=== PATIENT | female | born 1990 | race Asian ===

== ENCOUNTER 2018-09-21 23:21 | Observation (INO) | payer OTHER | END 2018-09-22 00:40 | disposition home or self-care (01) | LOC: FLD 23:21 | PROVIDERS: ADMIT Obstetrics & Gynecology; ATTEND Obstetrics & Gynecology | DX: Z34.90 Encounter for supervision of normal pregnancy, unspecified, unspecified trimester (principal) | CPT/HCPCS: 59025; G0378 ==

== ENCOUNTER 2018-09-26 11:44 | Observation (INO) | payer OTHER ==
--- NOTE | 2018-09-26 13:23 | SOAPPROG ---
SOAP Progress Note Assessment/Plan: Assessment: 28 at 39w0d with no evidence of ROM. Amnisure neg, nitrazine neg. Prior C/S - scheduled for repeat and bilateral salpingectomy on 09/28/18. CHARISMA 12.91 Plan: DC home. Keep plan for scheduled C/S in [address] Hoang - reviewed pre-op instructions again - 10 oz gatorade - to be finished 2 hour prior to surgery. No solid food for 8 hours prior to surgery. > 15 min spent with patient. Sangeeta Young MD, FACOG 09/26/18 13:20 Subjective: Pt had a gush of moisture around 1030, and then felt moist. Did not wear a pad hear and underwear was not wet. Good FM, no VB. Not feeling any contractions. Objective: 37.1 99 100% on RA 121/74 FHR 155 reactive toco - occasional contraction Gen - pleasant, NAD abd - soft, gravid, NT US done - cephalic presentation, CHARISMA 12.9cm, MVP 4.2cm, Active fetus. Nitrazine negative Amnisure negative. Per RN, perineum and vagina not moist. - Time Spent With Patient Time Spent With Patient: 15 min - Pending Discharge Pending Discharge Within 24 Hours: Yes Pending Discharge Within 48 Hours: Yes Pending Discharge Date: 09/27/18 Pending Discharge Time: 11:00 ICD10 Worksheet Patient Problems: Problems Problem Status Onset History of delivery, currently Acute History of delivery, currently Acute Vaginal discharge during in third trimester Acute - ICD10 Problem Qualifiers (1) Vaginal discharge during in third trimester (2) History of delivery, currently (3) History of delivery, currently
[2018-09-28] MEDS ORDERED: morphINE PF 5 MG/10 ML INJ ONE (07:31)
[2018-09-28] MEDS ORDERED: fentaNYL 100 MCG/2 ML INJ ONE (09:39)
== END 2018-09-26 13:30 | disposition home or self-care (01) ==
LOC: FLD 11:44
PROVIDERS: ADMIT Hospitalist; ATTEND Hospitalist
DX: Z03.71 Encounter for suspected problem with amniotic cavity and membrane ruled out (principal); O34.211 Maternal care for low transverse scar from previous cesarean delivery; Z3A.39 39 weeks gestation of pregnancy
CPT/HCPCS: 59025; 76815; 76818; G0378; J2274; J3010

== ENCOUNTER 2018-09-28 05:27 | Inpatient (IN) | payer OTHER ==
--- NOTE | 2018-09-22 16:05 | GHP ---
[f rep st] PREOP HISTORY AND PHYSICAL DATE OF ADMISSION: 09/28/2018 DATE OF OPERATION: Scheduled for September 28, 2018, at 7:30 a.m. PROCEDURE TO BE PERFORMED: Repeat lower transverse section and bilateral salpingectomy. MUNICIPAL MAINTENANCE WORKER: Dr. Kiki Madrid HISTORY OF PRESENT ILLNESS: The patient is a 28-year-old 2, para 1-0-0- 1, with a last menstrual period of 12/27/2017, and an EDC of 10/03/2018, confirmed by a 14 week ultrasound. She has had good care at [facility] since registration at 14 weeks gestation. Her risk factors, include history of , secondary to failure to progress and nonreassuring status with chorio. Patient has been counseled on risks, benefits of vaginal delivery versus repeat section, and she chooses to have a repeat section, declines trial of labor. She has a history of asthma, remote history has not bothered her in years, and she has a short interval, and is nonimmune to rubella. No other significant problems in this . She will be 39 weeks on the . PAST OBSTETRICAL HISTORY: In November of 2016, she had a viable male, 5 pounds 11 ounces at 38 weeks' gestation. She had rupture of membranes for meconium, had failure to progress and nonreassuring heart tones with maternal fever and chorioamnionitis. This was performed in [place]. She had a section that was uncomplicated and this is her second . PAST GYNECOLOGICAL HISTORY: Menarche at age 9, interval every 28 days, length of 5 days. During her section, she was discovered to have a right ovarian cyst that was benign, and it was removed at the time of surgery. No other gynecological problems. She had a normal Pap smear in April of 2018, which was negative as well as a high-risk HPV was also negative. PAST MEDICAL PROBLEMS: She has a history of asthma diagnosed at age 4. It is a minimally problematic for her. She was never intubated. PAST SURGICAL HISTORY: Of a with the incidental right ovarian cystectomy in 2016. She had wisdom teeth extraction, and that is all. ALLERGIES: She has no known drug allergies. CURRENT MEDICATIONS: Just include vitamins and DHA. SOCIAL HISTORY: She is . She lives with her , her son, and she is a ymex-eb-aayj mom. They are originally from [place]. She denies tobacco, alcohol, and drug use and she is sure that she does not want more children after this baby. FAMILY HISTORY: Her father has diabetes mom has depression and that is all. LABORATORY DATA: Her most recent hematocrit was 36. Labs in this : She is O positive. Antibody negative. RPR nonreactive. Rubella nonimmune. Hepatitis negative. HIV negative. Cystic fibrosis, SMA, fragile X negative. Standard panel was negative. Urine drug screen was negative. Pap was normal. Gonorrhea and chlamydia were normal. 1-hour GTT was 112. GBS was negative. OBJECTIVE: VITAL SIGNS: Today she is afebrile. Vital signs are stable. heart tones are 140s. Her blood pressure is 106/62. Weight is 161.2, which is a 31 pounds weight gain in this . Urine dip was negative. GENERAL: She is a well-developed, gravid, female in no acute distress. LUNGS: Clear to auscultation bilaterally. HEART: Regular rate and rhythm no murmur. ABDOMEN: Gravid. Fundal height is 38. heart tones 140s. PELVIC: Exam was deferred. Baby is cephalic. ASSESSMENT AND PLAN: 28-year-old 2, para 1-0-0-1 who will be 39 weeks gestation on 09/28/2018. Desires repeat lower transverse section and bilateral salpingectomy. The patient is aware that a salpingectomy is permanent and cannot be reversed. She does not want to bear children after this baby and desires to have a salpingectomy, declines other methods of contraception, and we reviewed all of those. She understands the risks and benefits of the section. The risks, including bleeding, infection, damage to organs, bowel, bladder, nerves, blood vessels, ureters, risk of injury, risk of hemorrhage requiring blood transfusion, hysterectomy, or . She understood these risks and benefits and agreed to proceed. /[id number]/MODL MTDD
[2018-09-28] MEDS ORDERED: ceFAZolin 2 GM/DEXTROSE 100 ML IV ONE (05:36)
[2018-09-28] MEDS ORDERED: LR 500 ML IV ONE (05:36)
[2018-09-28] MEDS ORDERED: CITRIC ACID/SODIUM CITRATE 30 ML UDCUP PO ONE (05:36)
[2018-09-28] MEDS: LR 1,000 ML IV SCH ×2 (06:40→11:20)
[2018-09-28 06:48] LABS: PLATELET COUNT 195 10^3/uL (150-400)
--- NOTE | 2018-09-28 07:19 | PREANESOB ---
Obstetric Pre-Anesthesia Info - General Info : 2 Para: 1 WARD: 10/03/18 Gestational Age: 39 week(s) and 2 day(s) - Info Status: Full Term, Perez FHR Pattern: Reassuring - Labor Status Section History: Repeat Indications for Current Section: Elective/Repeat Anesthesia Allergies/Adverse Reactions: Allergy/AdvReac Type Severity Reaction Status Date / Time house dust Allergy Verified 09/28/18 05:57 Visit Medications: Generic Name Dose Route Start Last Admin Trade Name Freq PRN Reason Stop Dose Admin Lactated Ringer's 1,000 mls @ 125 mls/hr 09/28/18 05:36 09/28/18 06:40 Lr IV 09/29/18 05:35 1,000 mls CONT CHITRA Administration Discontinued Medications Generic Name Dose Route Start Last Admin Trade Name Freq PRN Reason Stop Dose Admin Citric Acid/Sodium Citrate 30 ml 09/28/18 05:36 Bicitra PO 09/28/18 05:37 ONCALL ONE Cefazolin Sodium/Dextrose 100 mls @ 200 mls/hr 09/28/18 05:36 Ancef IV 09/28/18 06:05 ONCALL ONE Protocol Lactated Ringer's 500 mls @ 0 mls/hr 09/28/18 05:36 Lr IV 09/28/18 05:37 ONCE ONE As Directed - Vital Signs Latest Vital Signs (Nursing): Temp Pulse Resp BP Pulse Ox 36.8 C 82 16 121/85 H 95 09/28/18 05:58 09/28/18 05:58 09/28/18 05:58 09/28/18 05:58 09/28/18 05:58 Height/Weight (Nursing): Height 157.48 cm Weight 73.482 kg Labs: 09/28/18 03:20
--- NOTE | 2018-09-28 07:27 | PDANEPAE ---
ANE History of Present Illness here for repeat CS ANE Past Medical History - Cardiovascular History Hx Hypertension: No Hx Arrhythmias: No Hx Chest Pain: No Hx Coronary Artery / Peripheral Vascular Disease: No Hx CHF / Valvular Disease: No Hx Palpitations: No - Pulmonary History Hx COPD: No Hx Asthma/Reactive Airway Disease: Yes Hx Recent Upper Respiratory Infection: No Hx Oxygen in Use at Home: No Hx Sleep Apnea: No Sleep Apnea Screening Result - Last Documented: Negative - Endocrine History Hx Diabetes: No Hypothyroid: No Hyperthyroid: No Obesity: no - Renal History Hx Renal Disorders: No - Chronic Pain History Chronic Pain: No ANE Review of Systems Review of systems is: negative Review of Systems: - Exercise capacity Exercise capacity: >=4 METS ANE Patient History - Allergies Allergies/Adverse Reactions: house dust Allergy (Verified 09/28/18 05:57) - Home Medications Home medications: home medication list seen and reviewed - NPO status NPO Status: no food or drink >8 hours NPO Since - Liquids (Date): 09/28/18 NPO Since - Liquids (Time): 05:30 NPO Since - Solids (Date): 09/27/18 NPO Since - Solids (Time): 20:00 - Anes Hx Anes Hx: no prior problems - Smoking Hx Smoking Status: Never smoked ANE Labs/Vital Signs - Labs Result Diagrams: 09/28/18 03:20 - Vital Signs Vital Signs: reviewed preoperatively; see RN documention for details Blood Pressure: 121/85 Heart Rate: 82 Respiratory Rate: 16 O2 Sat (%): 95 Height: 157.48 cm Weight: 73.482 kg ANE Physical Exam - Airway Neck exam: FROM Mallampati Score: Class 2 Mouth exam: normal dental/mouth exam - Pulmonary Pulmonary: no respiratory distress - Cardiovascular Cardiovascular: regular rate and rhythym - ASA Status ASA Status: II ANE Anesthesia Plan Anesthesia Plan: spinal
--- NOTE | 2018-09-28 07:43 | PDHPUP ---
History & Physical Update H&P update statement: This history and physical update is based on an assessment of the patient which was completed after admission or registration (within 24 hours), but prior to the surgery/procedure. H&P update: H&P reviewed & patient examined, no change in patient's condition since H&P completed
[2018-09-28] MEDS ORDERED: CEFAZOLIN 2 GM/DEXTROSE/100 ML BAG IV ONE (08:59)
[2018-09-28] MEDS ORDERED: METHYLERGONOVINE MAL 0.2 MG/ML INJ ONE ×2 (09:15→11:49)
[2018-09-28] MEDS ORDERED: MAGNESIUM HYDROXIDE 30 ML UDCUP PO PRN (10:20)
[2018-09-28] MEDS ORDERED: SIMETHICONE 80 MG TAB CHEW PO PRN (10:20)
[2018-09-28] MEDS ORDERED: LACTULOSE 20 GM/30 ML UDCUP PO PRN (10:20)
[2018-09-28] MEDS ORDERED: PROMETHAZINE HCL 25 MG/ML INJ IVP PRN (10:20)
[2018-09-28] MEDS ORDERED: POLYETHYLENE GLYCOL 3350 17 GM PKT PO PRN (10:20)
[2018-09-28] MEDS ORDERED: BISACODYL 10 MG SUPP PR PRN (10:20)
--- NOTE | 2018-09-28 10:27 | OBDEL ---
Info Type: Repeat Presentation at Delivery: Vertex L&D Analgesia/Anesthesia Type: Epidural GBS+: No Intrapartum Medications: Generic Name Dose Route Start Last Admin Trade Name Freq PRN Reason Stop Dose Admin Lactated Ringer's 1,000 mls @ 125 mls/hr 09/28/18 05:36 09/28/18 06:40 Lr IV 09/29/18 05:35 1,000 mls CONT CHITRA Administration Discontinued Medications Generic Name Dose Route Start Last Admin Trade Name Freq PRN Reason Stop Dose Admin Citric Acid/Sodium Citrate 30 ml 09/28/18 05:36 09/28/18 07:30 Bicitra PO 09/28/18 05:37 30 ml ONCALL ONE Administration - Infant Care Provider Panel Maker/ACT ENGLISH TUTOR: Deysi Jacobo Indications for Delivery: Elective Operative Report - Delivery Pre-op Diagnoses: IUP @ 39 weeks, h/o c section desires repeat, desires sterilization Post-op Diagnoses: same History of Prior Section: Yes Number of Prior Sections: 1 Nulliparous Prior to Delivery: No Indications for Prior Section: Arrest of Dilation Indications for Current Section: Elective/Repeat Procedure: Scheduled Surgeon: Yolanda Hoang Event Management Consultant: Morena Dhaliwal Anesthesiologist: Eligio Smith Complications: None Findings: uterus, tubes and ovaries IV Fluid (ml): 1,900 EBL: 750 Staples Data WARD: 10/03/18 Gestational Age: 39 week(s) and 2 day(s) ICD10 Worksheet Patient Problems: Problems Problem Status Onset History of delivery, currently Acute History of delivery, currently Acute Vaginal discharge during in third trimester Acute
--- NOTE | 2018-09-28 10:28 | POSTANESTH ---
Post Anesthetic Evaluation Cardiovascular Status: Normal, Stable Respiratory Status: Normal, Stable Level of Consciousness/Mental Status: Can Participate in Eval Pain Control: Adequate, Prn Tx Ordered Nausea/Vomiting Control: Adequate, Prn Tx Ordered Complications Possibly Related to Anesthesia: None Noted
[2018-09-28] MEDS ORDERED: ONDANSETRON 4 MG/2 ML VIAL IVP PRN (10:29)
[2018-09-28] MEDS ORDERED: PHENYLEPHRINE HCL 100 MCG/ML SYR IVP PRN (10:29)
[2018-09-28] MEDS ORDERED: NALOXONE HCL 0.4 MG/ML INJ IVP PRN ×2 (10:29→16:24)
[2018-09-28] MEDS ORDERED: fentaNYL 100 MCG/2 ML INJ IVP PRN (10:29)
[2018-09-28] MEDS ORDERED: ALBUTEROL 3 ML DEYVIAL IH PRN (10:29)
[2018-09-28] MEDS ORDERED: HYDROmorphONE/DILAUDID 2 MG/ML INJ IVP PRN (10:29)
[2018-09-28] MEDS ORDERED: KETOROLAC 30 MG/1 ML SDV ONE (10:56)
[2018-09-28] MEDS: KETOROLAC 30 MG/1 ML SDV IVP SCH ×3 (11:07→23:27)
--- NOTE | 2018-09-28 11:08 | GOP ---
[f rep st] OPERATIVE REPORT DATE OF OPERATION: 09/28/2018 SURGEON: Yolanda Hoang MD [employer] TECHNICAL MANAGER: Morena Dhaliwal CNM. ANESTHESIA: Epidural anesthesia. ANESTHESIOLOGIST: Eligio Smith MD. PREOPERATIVE DIAGNOSIS: Intrauterine at 39 weeks' gestation with history of prior lower tr ansverse section, desires repeat. Also, multiparity, desires permanent elective sterilizati on. POSTOPERATIVE DIAGNOSIS: PROCEDURE PERFORMED: Repeat lower transverse section and bilateral salpingectomy. FINDINGS: Viable male, Apgars of 9 and 9, weight of 7 pounds even. He was born at 9:07 a.m. ESTIMATED BLOOD LOSS: Estimated blood loss for the procedure was 750 cc. INDICATIONS: The patient is a 28-year-old 2, para 1-0-0-1, with a last menstrual period of 0 12/27/2017 and an EDC of 10/03/2018, confirmed by a 14-week ultrasound. She has had good car e at [facility] since registration at 14 weeks' gestation. risk factors include h istory of secondary to failure to progress, and nonreassuring status and chorio with G1. The patient declines trial of labor after section and elects to have a repeat section. She also desires to have permanent elective sterilization. She has been offered other meth ods of contraception, is sure she does not want to bear children again or have another , and she wishes to have a sterilization. She understands the recommendation is a salpingectomy and is in agreement with this. The patient was consented for the procedure. She understood the risks and fr[place] efits, the risks including bleeding, infection, damage to internal organs, uterus, tubes, ovaries, tracey wel, bladder, nerves, blood vessels, or ureters; risk of injury, risk of hemorrhage requiring b lood transfusion, hysterectomy, or . She understood these risks and benefits, and agreed to pro ceed. DESCRIPTION OF PROCEDURE: The patient was taken to the operating room where she was initially given spinal anesthesia without difficulty. She was prepped and draped. However, anesthesia was found to be inadequate. Her legs were numb, but her abdomen was not. The drape was removed. Instruments wer e kept sterile, and she then was given an epidural for pain control. Epidural anesthesia was found t o be adequate. She was re-prepped and draped in the dorsal supine position with a leftward tilt, and a Gonzalez catheter had previously been placed in her bladder. After adequate anesthesia was again ass ured and a WHO timeout was performed, a transverse skin incision was made in the previous s car. The incision was carried down to the underlying layer of fascia with the Bovie. The fascia was incised midline. Fascial incision was extended laterally with Arriaga scissors. Superior aspect of e fascial incision was grasped with Parker clamps, elevated, and the rectus muscles were dissected of f sharply. Inferior aspect of the fascial incision was grasped with Parker clamps, elevated, and the rectus muscles were dissected off sharply. Rectus muscles were in the midline. Peritoneu m was entered sharply. Peritoneal incision was extended superiorly and inferiorly with good visualiz ation of bladder. Bladder blade was inserted. The vesicouterine peritoneum was grasped with pickups and entered sharply with Metzenbaum scissors. The incision was extended laterally, and bladder flap was created digitally. The uterus was incised with a knife, and the incision was extended laterally with bandage scissors. There was clear amniotic fluid upon entry into the uterine cavity. The infa nt was in cephalic presentation. However, the head was not engaged in the pelvis. Therefore, a vacu um was placed on the head, and the head was delivered atraumatically. The vacuum was removed. Baby was delivered. We delayed cord clamping for 1 minute. Baby was vigorous at the OR table. Mouth and nose were bulb suctioned. Cord was clamped and cut at a minute, and the infant was handed off to [facility] awaiting nurse practitioner. Cord bloods were sent. The uterus was exteriorized, and wayne ared of all clots and debris. The uterine incision was repaired with 0 Vicryl in a running locked fa shion, and good hemostasis was obtained. We put pressure on the abdominal incision. We again did a timeout before we performed the tubal ligation. We used the open LigaSure. The left fallopian tube was grasped at the fimbriated end, the LigaSure was cauterized and cut from the fimbriated end to the cornu, and the tube was removed without difficulty. Repeat procedure was performed with the right t ube from the fimbriated end to the cornual region, the vessels were sealed, and there were no difficu lties with hemostasis. Tubes were removed and sent to Pathology in one specimen. The uterine incisi on again assured hemostasis. The uterus was returned to the abdomen. Gutters were cleared of all cl ots and debris. Reinspection of the uterine incision again assured hemostasis. The rectus muscles w ere approximated with 2-0 Vicryl in an inverted mattress fashion. The fascia was closed with #1 Vicr yl in a running fashion. The patient had a fair amount of scar in her subcutaneous tissue. This was loosened up. I initially closed Abby fascia. However, the incision did not have a good cosmetic outcome, so I loosened Abby fascia and closed the skin with 4-0 Vicryl. The patient tolerated the procedure well. Sponge, lap, needle, and instrument counts were correct x2. The patient went to Rec overy in good condition. IV FLUIDS: 1900. URINE OUTPUT: 200. /[id number]/MODL
[2018-09-28] MEDS ORDERED: METHYLERGONOVINE MAL 0.2 MG/ML INJ IM ONE (11:53)
[2018-09-28] MEDS: IBUPROFEN 600 MG TAB PO SCH ×2 (17:43→22:30)
[2018-09-28] MEDS: ACETAMINOPHEN 325 MG TAB PO SCH ×3 (17:47→23:27)
[2018-09-28] MEDS: SENNOSIDES/DOCUSATE SODIUM TAB PO SCH (20:07)
[2018-09-29] MEDS: IBUPROFEN 600 MG TAB PO SCH ×3 (04:30→17:40)
[2018-09-29] MEDS: ACETAMINOPHEN 325 MG TAB PO SCH ×3 (05:29→17:40)
[2018-09-29] MEDS: KETOROLAC 30 MG/1 ML SDV IVP SCH (05:29)
--- NOTE | 2018-09-29 08:17 | OBPP ---
Progress Note Assessment/Plan: Assessment: POD 1 s/p RCS, BS mild anemia Plan: routine care, iron daily 09/29/18 08:11 Subjective/ Course: 09/29/18 08:13 Pt doing ok - exhausted - not slept much with fussy baby. Baby latching ok. no nausea and delmy reg diet. sol not out yet. encouraged activity today. disc iron for mild anemia Objective: 09/29/18 05:45 Patient ABO/Rh O POSITIVE 09/28/18 03:20 Temp Pulse Resp BP Pulse Ox 36.7 C 73 20 99/56 L 94 09/29/18 04:15 09/29/18 06:00 09/29/18 06:00 09/29/18 04:15 09/29/18 06:00 Uterine Position/Fundal Height: Umbilicus -1 ( FF at umb -1, ) Uterine Tone: Firm Physical Exam - Physical Exam Abdomen: non-tender (approp post op tenderness, ), soft, dressing (dry) Extremities: non-tender, pedal edema (none) Skin: normal color, warm/dry Neuro/Psych: alert, normal mood/affect
[2018-09-29] MEDS: SENNOSIDES/DOCUSATE SODIUM TAB PO SCH ×2 (10:33→20:05)
[2018-09-29] MEDS: oxyCODONE IR 5 MG TAB PO PRN ×3 (10:33→20:13)
[2018-09-29] MEDS: FERRO-SEQUELS 65 MG TAB.ER PO SCH ×2 (10:34→20:06)
[2018-09-30] MEDS: oxyCODONE IR 5 MG TAB PO PRN ×3 (02:55→16:04)
[2018-09-30] MEDS: IBUPROFEN 600 MG TAB PO SCH ×4 (05:41→18:02)
[2018-09-30] MEDS: ACETAMINOPHEN 325 MG TAB PO SCH ×4 (05:42→18:02)
[2018-09-30] MEDS ORDERED: MEASLES,MUMPS&RUBELLA VACC/PF 0.5 ML VIAL SC ONE (06:00)
[2018-09-30] MEDS: SENNOSIDES/DOCUSATE SODIUM TAB PO SCH ×2 (09:33→21:24)
[2018-09-30] MEDS: FERRO-SEQUELS 65 MG TAB.ER PO SCH ×2 (09:34→21:24)
--- NOTE | 2018-09-30 12:29 | OBPP ---
Progress Note Assessment/Plan: Assessment: POD2 s/p RCS, BS mild anemia - on iron likely ready for home tomorrow. script for oxy signed and in chart in case she does want to go tonight. Rubella non-immune, MMR. Rh pos. Laboratory Tests 04/19/18 09/07/18 09/28/18 17:45 15:54 03:20 Hct 39.7 Rubella IgG Antibody 3.64 Group B Strep DNA NEGATIVE Patient ABO/Rh 09/28/18 09/29/18 03:20 05:45 Hct 30.1 L Rubella IgG Antibody Group B Strep DNA Patient ABO/Rh O POSITIVE Subjective/ Course: Renetta is doing fine - no particular issues, BF going well, pain well controlled with narcotics PRN. Would consider leaving today if baby was cleared to go. Objective: 09/29/18 05:45 Patient ABO/Rh O POSITIVE 09/28/18 03:20 Temp Pulse Resp BP Pulse Ox 36.1 C 92 14 99/72 L 94 09/30/18 08:34 09/30/18 08:34 09/30/18 08:34 09/30/18 08:34 09/30/18 08:34 Uterine Position/Fundal Height: Umbilicus -2 Uterine Tone: Firm Physical Exam - Physical Exam Abdomen: incision (CDI with steri strips, no s/sx of infx)
[2018-10-01] MEDS: ACETAMINOPHEN 325 MG TAB PO SCH ×3 (00:09→12:16)
[2018-10-01] MEDS: IBUPROFEN 600 MG TAB PO SCH ×3 (00:09→12:16)
[2018-10-01] MEDS: oxyCODONE IR 5 MG TAB PO PRN ×2 (02:47→09:03)
[2018-10-01] MEDS: FERRO-SEQUELS 65 MG TAB.ER PO SCH (09:03)
[2018-10-01] MEDS: SENNOSIDES/DOCUSATE SODIUM TAB PO SCH (09:03)
[2018-10-01 09:30] VITALS: BP 109/77
--- NOTE | 2018-10-01 11:24 | OBPP ---
Progress Note Assessment/Plan: Assessment: POD 3 s/p RCS, BS mild anemia Plan: routine care, iron daily, d/c home 09/29/18 08:11 10/01/18 11:21 Subjective/ Course: Renetta is doing fine - no particular issues, BF going well, pain well controlled with narcotics PRN. Would consider leaving today if baby was cleared to go. 10/01/18 11:21 Pt doing well. Bld is light. urinating fine. Had a BM. baby is BF well and milk coming in. Pain controlled with ibu/tyl and oxy prn. ready for d/c Objective: 09/29/18 05:45 Patient ABO/Rh O POSITIVE 09/28/18 03:20 Temp Pulse Resp BP Pulse Ox 36.3 C 90 16 109/77 95 10/01/18 08:00 10/01/18 08:00 10/01/18 08:00 10/01/18 08:00 09/30/18 20:16 Uterine Position/Fundal Height: Umbilicus -2 Uterine Tone: Firm Physical Exam - Physical Exam Abdomen: non-tender (approp post op tenderness), soft, incision (CDI), other ( FF at umb -2, bld small) Extremities: non-tender, pedal edema (mild) Skin: normal color, warm/dry Neuro/Psych: alert, normal mood/affect
--- NOTE | 2018-10-01 11:28 | OBGCSDC ---
General Delivery Information - General Info : 2 Para: 2 Abortions: 0 Type: Repeat L&D Analgesia/Anesthesia Type: Epidural, Spinal Admission Date: 09/28/18 Labs: Patient ABO/Rh O POSITIVE 09/28/18 03:20 Hct 30.1 % (38.0-47.0) L 09/29/18 05:45 - Hospital Course : Renetta is doing fine - no particular issues, BF going well, pain well controlled with narcotics PRN. Would consider leaving today if baby was cleared to go. 10/01/18 11:21 Pt doing well. Bld is light. urinating fine. Had a BM. baby is BF well and milk coming in. Pain controlled with ibu/tyl and oxy prn. ready for d/c - Delivery Providers Surgeon: Yolanda Hoang Aerospace Technician: Morena Dhaliwal Anesthesiologist: Eligio Smith - Delivery Number of Prior Sections: 1 Indications for Current Section: Elective/Repeat Surgical Procedures: Scheduled Intra-op Complications: None EBL: 750 Data WARD: 10/03/18 Gestational Age: 39 week(s) and 5 day(s) Perez Delivery Date: 09/28/18 Delivery Time: 09:07 Sex of Infant: Male Score (1 Min): 9 Score (5 Min): 9 Discharge Information - Discharge Information Prescriptions: oxyCODONE IR [Oxycodone Ir (*)] 5 - 10 mg PO Q4HRS PRN #16 tab PRN Reason: Pain, Severe Able To Take Po Condition: Good Instruction/Follow Up: See Instruction Sheet, Two Weeks (with BP and therapist) , Six Weeks (with BP)
== END 2018-10-01 12:30 | disposition home or self-care (01) | DRG 785 ==
LOC: FLD 05:27 → FOB 13:00
PROVIDERS: ADMIT Obstetrics & Gynecology; ATTEND Obstetrics & Gynecology
PROC: 10D00Z1 Extraction of Products of Conception, Low, Open Approach (ICD-10-PCS; principal; 2018-09-28)
PROC: 0UT70ZZ Resection of Bilateral Fallopian Tubes, Open Approach (ICD-10-PCS; principal; 2018-09-28)
DX: O34.211 Maternal care for low transverse scar from previous cesarean delivery (principal); Z30.2 Encounter for sterilization; O32.4XX0 Maternal care for high head at term, not applicable or unspecified; O99.03 Anemia complicating the puerperium; O99.513 Diseases of the respiratory system complicating pregnancy, third trimester; D64.9 Anemia, unspecified; J45.909 Unspecified asthma, uncomplicated; Z3A.39 39 weeks gestation of pregnancy; Z37.0 Single live birth
CPT/HCPCS: J0690; J1885; J2210; J7613